=== PATIENT | male | born 1950 | race Caucasian/White ===

== ENCOUNTER 2017-09-29 15:36 | Outpatient (CLI) | payer MEDICARE ==
--- NOTE | 2017-09-29 18:47 | RAD ---
RIGHT HIP TWO VIEWS: History: Right hip pain. FINDINGS: There are mild degenerative changes present. No fracture, dislocation, or bony destruction is identi fied. IMPRESSION: Right hip osteoarthritis. POS: [facility]
== END 2017-09-29 15:37 | disposition home or self-care (01) ==
LOC: MADRAD 15:36
PROVIDERS: ATTEND Family Medicine
DX: M54.16 Radiculopathy, lumbar region (principal); M16.11 Unilateral primary osteoarthritis, right hip

== ENCOUNTER 2021-01-22 16:02 | Emergency (ER) | payer MEDICARE ==
[2021-01-22] MEDS ORDERED: Lidocaine 1% 20 ML MDV ONE (16:14)
[2021-01-22] MEDS ORDERED: Amoxicillin/Potassium Clav 875 MG TAB ONE (18:12)
[2021-01-22] MEDS ORDERED: Ibuprofen 600 MG TAB ONE (18:32)
[2021-01-22] MEDS ORDERED: Acetaminophen 500 MG TAB ONE (18:32)
== END 2021-01-22 19:05 | disposition home or self-care (01) ==
LOC: MADERS 16:02
DX: S61.412A Laceration without foreign body of left hand, initial encounter (principal); S61.411A Laceration without foreign body of right hand, initial encounter; I10 Essential (primary) hypertension; W55.22XA Struck by cow, initial encounter
CPT/HCPCS: 12045

== ENCOUNTER 2021-07-21 12:32 | Emergency (ER) | payer MEDICARE ==
[2021-07-21] MEDS ORDERED: Cefepime 1 GM VIAL ONE (13:06)
[2021-07-21 13:41] LABS: INR-International Normal Ratio 1.1; Prothrombin Time 13.8 sec (12.0-14.7)
[2021-07-21 13:42] LABS: PTT 40.3 sec (22.9-36.1)
[2021-07-21 13:48] LABS: ALT (SGPT) 15 U/L (8-55); AST (SGOT) 14 U/L (5-34); Alkaline Phosphatase 90 U/L (40-110); Anion Gap 15 mmol/L (10-20); BUN (Urea Nitrogen) 33 mg/dL (8.4-25.7); Bilirubin, Total 0.5 mg/dL (0.2-1.2); Calc. Creatinine Clearance 0 mL/min (70-130); Calcium 9.6 mg/dL (7.8-10.44); Carbon Dioxide 22 mmol/L (23-31); Chloride 105 mmol/L (98-107); Globulin 3.6 g/dL (2.4-3.5); Glucose 139 mg/dL (83-110); Protein, Total 7.6 g/dL (5.8-8.1); Sodium 138 mmol/L (136-145)
== END 2021-07-21 13:55 | disposition short-term general hospital (02) ==
LOC: MADERS 12:32
DX: R60.0 Localized edema (principal); I10 Essential (primary) hypertension; Z85.828 Personal history of other malignant neoplasm of skin; Z79.899 Other long term (current) drug therapy
CPT/HCPCS: 36415; 80053; 83605; 85610; 85730; 87040; 96372; 99284; J0692

== ENCOUNTER 2022-12-21 19:16 | Emergency (ER) | payer MEDICARE ==
[2022-12-21] MEDS ORDERED: Boostrix 0.5 ML (Tdap) VIAL (>/=7 yrs of age) ONE (19:47)
[2022-12-21] MEDS ORDERED: Lidocaine 1% w/Epinephrine 1:100K 20 ML VIAL ONE ×3 (20:01→22:28)
[2022-12-21] MEDS ORDERED: Lidocaine 1% w/Epinephrine 1:100K 50 ML VIAL ONE (20:01)
[2022-12-21] MEDS ORDERED: Lidocaine 1% w/Epinephrine 1:100K 30 ML VIAL ONE (20:03)
[2022-12-21] MEDS ORDERED: Bacitracin 1 PK ONE (23:56)
== END 2022-12-22 00:35 | disposition home or self-care (01) ==
LOC: MADERS 19:16
DX: S81.811A Laceration without foreign body, right lower leg, initial encounter (principal); I10 Essential (primary) hypertension; Z23 Encounter for immunization; Z79.899 Other long term (current) drug therapy; W26.9XXA Contact with unspecified sharp object(s), initial encounter
CPT/HCPCS: 13121; 13122; 90471; 90715